=== PATIENT | male | born 1975 | race Caucasian/White ===

== ENCOUNTER 2023-08-08 21:51 | Emergency (ER) | payer SELFPAY ==
[2023-08-08 21:53] VITALS: BP 131/79
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
[2023-08-08] MEDS: MOTRIN 600 MG PO (23:10)
[2023-08-08 23:13] VITALS: BMI 27.1
[2023-08-08 23:28] VITALS: BP 151/93
[2023-08-08 23:30] VITALS: BP 151/93
== END 2023-08-08 23:31 | disposition home or self-care (01) ==
LOC: EMR 21:51
PROVIDERS: EMERGENCY PHYSICIAN Emergency Medicine
DX: S00.83XA Contusion of other part of head, initial encounter (principal); S09.90XA Unspecified injury of head, initial encounter; Y04.0XXA Assault by unarmed brawl or fight, initial encounter; Y99.0 Civilian activity done for income or pay
CPT/HCPCS: 99283

== ENCOUNTER 2024-07-10 20:58 | Emergency (ER) | payer OTHER, SELFPAY ==
[2024-07-10 21:04] VITALS: BP 164/101
[2024-07-10 21:11] VITALS: BMI 27.4
[2024-07-10 21:28] VITALS: BP 151/106
[2024-07-10 21:33] LABS: Hemoglobin 14.7 g/dL (13.0-18.0); Mean Corp Hgb Conc. 35.9 g/dL (33.0-37.0); Mean Corpuscular Hgb 31.6 pg (27.0-31.0); Mean Corpuscular Volume 88.2 fL (80.0-94.0); Mean Platelet Volume 10.8 fL (7.4-10.4); Platelet Count 126 10^3/uL (130-400); Red Blood Cell Count 4.65 10^6/uL (4.70-6.10); Red Cell Dist. Width 12.9 % (11.5-14.5); White Blood Cell Count 4.7 10^3/uL (4.8-10.8)
[2024-07-10 21:54] LABS: ALT (SGPT) 49 U/L (0-50); AST (SGOT) 58 U/L (17-59); Albumin 4.1 g/dl (3.5-5.0); Alkaline Phosphatase 63 U/L (38-126); Blood Urea Nitrogen 9 mg/dl (9-20); Calcium 9.1 mg/dl (8.4-10.2); Carbon Dioxide 27 mmol/L (22-30); Chloride 106 mmol/L (98-107); Estimated Creatinine Clearance 83 ml/min; Glucose 77 mg/dl (70-99); Potassium 4.1 mmol/L (3.5-5.1); Sodium 141 mmol/L (135-145); Total Bilirubin 0.8 mg/dl (0.2-1.3); eGFR > 60.00
[2024-07-10 22:00] VITALS: BP 146/99
[2024-07-10 22:02] LABS: % Basophils 0.2 % (0-2); % Eosinophils 1.1 % (0-6); % Immature Granulocytes 0.2 % (0-0.5); % Monocytes 9.4 % (1.7-9.3); % Neutrophils 30.1 % (42.2-75.2); Absolute Eosinophils 0.1 10^3/uL (0-0.7); Absolute Lymphocytes 2.8 10^3/uL (1.2-3.4); Absolute Monocytes 0.4 10^3/uL (0.1-0.6); Absolute Neutrophils 1.4 10^3/uL (1.4-6.5); Nucleated Red Blood Cells % 0 % (-)
--- NOTE | 2024-07-10 22:19 | ED.GENMED ---
History of Present Illness
<Mundo Sandoval MD, Resident - Last Filed: 07/10/24 23:00>
General
Chief Complaint: Chest Pain
Time Seen by Provider: 07/10/24 21:59
History of Present Illness
History of Present Illness:
This is a 48-year-old male with no past medical history who presents to the ED complaining of sharp left-sided chest pain that started a few hours ago. He reports pain does not radiate anywhere else. Reports pain is an 8 out of 10. Nothing makes
the pain better, movement and taking a deep breath makes pain worse. He reports tenderness to palpation of the left upper chest. He has denies nausea and vomiting. He denies shortness of breath, cough, palpitation. Pertinent to patient's history,
he reports having 1 can of red bull today.
Past History
<Mundo Sandoval MD, Resident - Last Filed: 07/10/24 23:00>
Past History
ED Past Medical History: None
ED Past Surgical History: None
Social History
Tobacco: Non-smoker
Alcohol: None
Drug: None
Phy Exam
<Mundo Sandoval MD, Resident - Last Filed: 07/10/24 23:00>
General Physical Exam
General Presentation: well appearing and no apparent distress
General Mental: alert
Cardiovascular Exam
Cardiovascular Exam: regular rate/rhythm, no edema, no gallop and no murmur
Pulmonary Exam
Pulmonary Exam: lungs clear, no respiratory distress, no rales and no crackles
Gastrointestinal Exam
Gastrointestinal Exam: normal bowel sounds, non tender, soft and non distended
Neurological Exam
Neurological Exam: alert and oriented x3
Musculoskeletal Exam
Musculoskeletal Exam: full ROM
Psychiatric Exam
Psychiatric Exam: normal mood/affect
Scores
<Mundo Sandoval MD, Resident - Last Filed: 07/10/24 23:00>
Heart Score for Chest Pain Patients
STEMI patient?: Not applicable
Course
<Mundo Sandoval MD, Resident - Last Filed: 07/10/24 23:00>
Orders/Labs/Results
Orders:
Orders
07/10/24 20:58
EKG [Electrocardiogram (*1)] Urgent
Reason for Study: Chest Pain
07/10/24 20:59
EKG- Treatment ONCE
07/10/24 21:09
Cardiac Monitoring- Treatment ONCE
IV Insert/Care/Rem.- Treatment PRN
CR Chest - 2 Views Urgent
Comment:
Reason For Exam: respiratory distress
O2 Therapy [RESP] Urgent
Titrate/Wean O2 to maintain O2 sat greater than (%): 93
Special Instructions: TO MAINTAIN CONTINUOUS O2 SATS >/= 93%
Pulse Ox/cont/shift [RESP] Urgent
Quantity: 1
Special Instructions: continuous pulse ox
07/10/24 21:11
Complete Blood Count/With Diff Urgent
Comprehensive Metabolic Panel Urgent
07/10/24 22:02
Troponin I Urgent
07/10/24 22:36
Ketorolac [Toradol] 30 mg .ROUTE .STK-MED ONE
07/10/24 22:37
Ketorolac [Toradol] 30 mg IV NOW STA
Abnormal Lab Results
07/10/24
21:11
WBC 4.7 L 10^3/uL
(4.8-10.8)
RBC 4.65 L 10^6/uL
(4.70-6.10)
MCH 31.6 H pg
(27.0-31.0)
Plt Count 126 L 10^3/uL
(130-400)
MPV 10.8 H fL
(7.4-10.4)
Neutrophils % 30.1 L %
(42.2-75.2)
Lymphocytes % 59.0 H %
(20.5-51.1)
Monocytes % 9.4 H %
(1.7-9.3)
Total Protein 9.0 H g/dl
(6.3-8.2)
07/10/24 21:11
07/10/24 21:11
Vital Signs
Initial and Last Documented VS:
Initial Vital Signs
Temp Pulse Resp BP Pulse Ox
98.4 F 53 18 164/101 97
07/10/24 21:04 07/10/24 21:04 07/10/24 21:04 07/10/24 21:04 07/10/24 21:04
Last Documented Vital Signs
Temp Pulse Resp BP Pulse Ox
98.4 F 48 14 146/99 97
07/10/24 21:04 07/10/24 22:30 07/10/24 22:30 07/10/24 22:00 07/10/24 22:30
<Mounika Hayes, DO - Last Filed: 07/10/24 23:36>
Orders/Labs/Results
Orders:
Orders
07/10/24 20:58
EKG [Electrocardiogram (*1)] Urgent
Reason for Study: Chest Pain
07/10/24 20:59
EKG- Treatment ONCE
07/10/24 21:09
Cardiac Monitoring- Treatment ONCE
IV Insert/Care/Rem.- Treatment PRN
CR Chest - 2 Views Urgent
Comment:
Reason For Exam: respiratory distress
O2 Therapy [RESP] Urgent
Titrate/Wean O2 to maintain O2 sat greater than (%): 93
Special Instructions: TO MAINTAIN CONTINUOUS O2 SATS >/= 93%
Pulse Ox/cont/shift [RESP] Urgent
Quantity: 1
Special Instructions: continuous pulse ox
07/10/24 21:11
Complete Blood Count/With Diff Urgent
Comprehensive Metabolic Panel Urgent
07/10/24 22:02
Troponin I Urgent
07/10/24 22:36
Ketorolac [Toradol] 30 mg .ROUTE .STK-MED ONE
07/10/24 22:37
Ketorolac [Toradol] 30 mg IV NOW STA
Abnormal Lab Results
07/10/24
21:11
WBC 4.7 L 10^3/uL
(4.8-10.8)
RBC 4.65 L 10^6/uL
(4.70-6.10)
MCH 31.6 H pg
(27.0-31.0)
Plt Count 126 L 10^3/uL
(130-400)
MPV 10.8 H fL
(7.4-10.4)
Neutrophils % 30.1 L %
(42.2-75.2)
Lymphocytes % 59.0 H %
(20.5-51.1)
Monocytes % 9.4 H %
(1.7-9.3)
Total Protein 9.0 H g/dl
(6.3-8.2)
07/10/24 21:11
07/10/24 21:11
Vital Signs
Initial and Last Documented VS:
Initial Vital Signs
Temp Pulse Resp BP Pulse Ox
98.4 F 53 18 164/101 97
07/10/24 21:04 07/10/24 21:04 07/10/24 21:04 07/10/24 21:04 07/10/24 21:04
Last Documented Vital Signs
Temp Pulse Resp BP Pulse Ox
98.4 F 48 14 146/99 97
07/10/24 21:04 07/10/24 22:30 07/10/24 22:30 07/10/24 22:00 07/10/24 22:30
<Mundo Sandoval MD, Resident - Last Filed: 07/10/24 23:00>
MDM/Problems Addressed
MDM/Problems Addressed:
This is a 48-year-old male with no past medical history who presents with sharp left-sided pain. Pain is reproducible. No palpitations, no shortness of breath. Physical examination with lungs clear to auscultation, S1-S2 present, no cardiac
murmurs. EKG on presentation sinus bradycardia, chest x-ray with no acute findings. Troponin negative. administer Toradol. Etiology likely musculoskeletal.
<Mundo Sandoval MD, Resident - Last Filed: 07/10/24 23:00>
*Critical Care Note
Total Time (30-74mins, 75-104mins- exclusive of procedures): Not Applicable
ED Attending Note
<Mundo Sandoval MD, Resident - Last Filed: 07/10/24 23:00>
-
Portions of this chart may have been created with voice recognition software.� Occasional wrong word or��sound alike� substitutions may have occurred due to the inherent limitations of voice recognition software.
<Mounika Hayes DO - Last Filed: 07/10/24 23:36>
ED Attending Note
Patient seen and examined by attending physician: Yes
I performed a history and physical exam of patient and discussed management with resident, I reviewed resident's note and agree with documented findings and plan of care.: Yes
ED Attending Note:
This is a 48-year-old gentleman who has no significant past medical history. Works at [employer].
He presents with several hour history of sharp, stabbing, left anterior chest pain that is worse with deep breath, worse with direct palpation. Pain began approximately 9 PM. 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
He has not had a cough, no shortness of breath, no nausea or vomiting, no abdominal pain, no leg pain or swelling.
No history of similar episodes of chest pain.
No recent travel.
No risk factors for thromboembolism.
No significant past medical history and no significant family history including no history of CAD nor thromboembolism.
Patient does admit to consuming a red bull drink today which he has never done before. He denies palpitations.
48-year-old gentleman appears his stated age, bright and alert, pleasant, appears in no acute distress. Resting comfortably on stretcher.
Heart is regular rate and rhythm. No murmur nor rub. Mild to moderate focal tenderness left anterior distal chest wall. Palpation seems to exactly reproduce patient's pain complaint. No palpable bony abnormality.
Lungs are clear to auscultation, respirations are easy and nonlabored.
Abdomen is soft without appreciable tenderness.
Concern for musculoskeletal chest pain, pleurisy, GERD, other consideration is ACS.
No risk factors for thromboembolism.
Thus far labs are unremarkable. EKG is unremarkable, within normal limits.
Chest x-ray is unremarkable, clear lung simmons, normal mediastinum, normal heart size.
Awaiting troponin and if negative will trial an IV dose of Toradol.
23:35
Troponin is negative.
Pain is resolved after an IV dose of Toradol.
Will discharge to home with prescription for ibuprofen for as needed pain.
Prompt follow-up with PCP for recheck.
Return precautions discussed.
Discharge Plan
Departure
Prescriptions:
No Action
No Current Medications
0
Interventions
Interventions:
*Risk Screen - Suicide Last Done: 07/10/24 21:05
*General Assessment Last Done: 07/10/24 21:05
*Neglect/Abuse Screening Last Done: 07/10/24 21:05
*ED- Fall Risk Assessment Last Done: 07/10/24 21:13
*ED COVID-19 Vaccine History Last Done: 07/10/24 21:05
ED- Cardiac Assessment Last Done: 07/10/24 21:14
Discharge Date and Time
Print Language: ROMANIAN
[2024-07-10 22:31] LABS: Troponin I < 0.012 ng/ml
[2024-07-10] MEDS: TORADOL 30 MG IV (22:37)
--- NOTE | 2024-07-10 22:50 | EDRN ---
Updated patient on labs
--- NOTE | 2024-07-10 22:55 | EDRN ---
Resident back in talking with patient
[2024-07-10 23:00] VITALS: BP 139/92
== END 2024-07-10 23:55 | disposition home or self-care (01) ==
LOC: EMR 20:58
PROVIDERS: Emergency Medicine; EMERGENCY PHYSICIAN Emergency Medicine
DX: R07.9 Chest pain, unspecified (principal); R00.1 Bradycardia, unspecified
CPT/HCPCS: 99285; 96374; 71046; 80053; 84484; 85025; 93005